=== PATIENT | female | born 1985 | race Caucasian/White ===

== ENCOUNTER 2021-03-18 08:45 | Emergency (ER) | payer OTHER ==
[~2021-03-18] VITALS: Ht 165.1 cm; Wt 54.4 kg
[2021-03-18] MEDS ORDERED: ULTRAM50 MG PO (12:44)
[2021-03-18] MEDS ORDERED: DICLOFENAC POTA50 MG PO (12:44)
[2021-03-18] MEDS ORDERED: ORPHENADRINE C100 MG PO (12:44)
== END 2021-03-18 13:04 ==
LOC: ER 08:45
DX: S13.9XXA Sprain of joints and ligaments of unspecified parts of neck, initial encounter (principal); S73.101A Unspecified sprain of right hip, initial encounter; S30.1XXA Contusion of abdominal wall, initial encounter; W18.39XA Other fall on same level, initial encounter; Y93.49 Activity, other involving dancing and other rhythmic movements; Y92.019 Unspecified place in single-family (private) house as the place of occurrence of the external cause

== ENCOUNTER 2025-02-25 13:37 | Outpatient (CLI) | payer OTHER ==
[~2025-02-25 13:37] MED LIST: DICLOFENAC POTA50 MG PO; ORPHENADRINE C100 MG PO; ULTRAM50 MG PO
== END 2025-02-25 13:42 | disposition home or self-care (01) ==
LOC: MAMO-SONO 13:37
DX: Z12.31 Encounter for screening mammogram for malignant neoplasm of breast (principal)